=== PATIENT | male | born 1955 | race Caucasian/White ===

== ENCOUNTER 2017-08-29 12:57 | Emergency (ER) | payer OTHER ==
[2017-08-29 16:42] LABS: ADD UMIC YES; UR ASCORBIC ACID NEGATIVE (NEGATIVE); UR BACTERIA FEW /HPF (NONE SEEN); UR BILIRUBIN (Dip) NEGATIVE (NEGATIVE); UR BLOOD (Dip) NEGATIVE (NEGATIVE); UR CLARITY SLIGHTLY CLOUDY (CLEAR); UR COLOR YELLOW (YELLOW); UR GLUCOSE (Dip) NEGATIVE (NEGATIVE); UR KETONES (Dip) NEGATIVE (NEGATIVE); UR LEUKOCYTE ESTERASE (Dip) 3+ Leu/ul (NEGATIVE); UR NITRITE (Dip) NEGATIVE (NEGATIVE); UR RBC 4 /HPF (0-5); UR SPECIFIC GRAVITY (Dip) 1.004 (1.003-1.030); UR TOTAL PROTEIN (Dip) NEGATIVE (NEGATIVE); UR UROBILINOGEN (Dip) NEGATIVE (NEGATIVE); UR WBC 47 /HPF (0-5)
[2017-08-29] MEDS: CEFTRIAXONE 1 GM INJ IM (17:06)
[2017-08-29] MEDS: LIDOCAINE 1% (MDV) 20 ML INJ SC (17:06)
== END 2017-08-29 19:03 | disposition home or self-care (01) ==
LOC: FTE 19:03
DX: N39.0 Urinary tract infection, site not specified (principal); I10 Essential (primary) hypertension
CPT/HCPCS: 81001; 87086; 96372; 99284-25

== ENCOUNTER 2017-11-12 10:10 | Emergency (ER) | payer OTHER ==
[2017-11-12 12:09] LABS: ADD MAN DIFF? NO
[2017-11-12 12:26] LABS: BASOPHIL # 0.1 10^3/ul (0.0-0.1); BASOPHILS % 0.8 % (0.0-2.0); EOSINOPHILS # 0.1 10^3/ul (0.0-0.5); EOSINOPHILS % 0.8 % (0.0-7.0); HEMOGLOBIN 12.9 g/dl (14.0-18.0); LYMPHOCYTES # 1.8 10^3/ul (0.8-2.9); LYMPHOCYTES % 24.7 % (15.0-51.0); MEAN CORPUSCULAR HEMOGLOBIN 32.3 pg (29.0-33.0); MEAN CORPUSCULAR HGB CONC 33.9 g/dl (32.0-37.0); MEAN PLATELET VOLUME 9.4 fl (7.4-10.4); MONOCYTE # 1.5 10^3/ul (0.3-0.9); MONOCYTES % 20.2 % (0.0-11.0); NEUTROPHIL # 3.8 10^3/ul (1.6-7.5); NEUTROPHILS % 52.7 % (39.0-77.0); PLATELET COUNT 157 10^3/UL (140-415); RED CELL DISTRIBUTION WIDTH 13.9 % (11.5-14.5)
[2017-11-12 12:26] LABS: WHITE BLOOD COUNT 7.3 10^3/ul (4.8-10.8)
[2017-11-12 12:30] LABS: ALBUMIN 4.8 g/dl (3.3-4.9); ALBUMIN/GLOBULIN RATIO 1.09; ALKALINE PHOSPHATASE 96 IU/L (42-121); ANION GAP 19 (8-16); ASPARTATE AMINO TRANSFERASE 179 IU/L (15-46); BILIRUBIN,INDIRECT 0.3 mg/dl (0-1.1); BILIRUBIN,TOTAL 0.3 mg/dl (0.2-1.3); BLOOD UREA NITROGEN 16 mg/dl (7-20); CALCIUM 9.4 mg/dl (8.4-10.2); CARBON DIOXIDE 30 mmol/L (21-31); CHLORIDE 96 mmol/L (97-110); GLUCOSE 80 mg/dl (70-220); LIPASE 629 U/L (23-300); POTASSIUM 3.4 mmol/L (3.5-5.1); SODIUM 142 mmol/L (135-144); TOTAL PROTEIN 9.2 g/dl (6.1-8.1)
[2017-11-12 12:33] LABS: ALANINE AMINOTRANSFERASE 231 IU/L (13-69)
[2017-11-12 12:43] LABS: UR CLARITY CLOUDY (CLEAR); UR COLOR YELLOW (YELLOW)
[2017-11-12 12:44] LABS: UR BILIRUBIN (Dip) NEGATIVE (NEGATIVE); UR BLOOD (Dip) 2+ mg/dL (NEGATIVE); UR GLUCOSE (Dip) NEGATIVE (NEGATIVE); UR KETONES (Dip) NEGATIVE (NEGATIVE); UR NITRITE (Dip) POSITIVE (NEGATIVE); UR TOTAL PROTEIN (Dip) 1+ mg/dl (NEGATIVE); URINE SPECIFIC GRAVITY (Dip) 1.006 (1.003-1.030)
[2017-11-12 12:45] LABS: ADD UMIC YES; UR BACTERIA MODERATE /HPF (NONE SEEN); UR LEUKOCYTE ESTERASE (Dip) 3+ Leu/ul (NEGATIVE); UR SQUAMOUS EPITHELIAL CELL FEW /HPF (FEW); UR UROBILINOGEN (Dip) NEGATIVE (NEGATIVE)
[2017-11-12] MEDS: LIDOCAINE 1% (MDV) 10 ML INJ INJ (13:09)
[2017-11-12] MEDS: CEFTRIAXONE 1 GM INJ IM (13:09)
== END 2017-11-12 13:38 | disposition home or self-care (01) ==
LOC: FTE 10:10
DX: N39.0 Urinary tract infection, site not specified (principal); I10 Essential (primary) hypertension; R74.0 Nonspecific elevation of levels of transaminase and lactic acid dehydrogenase [LDH]
CPT/HCPCS: 36415; 74176; 80053; 81001; 83690; 85025; 87086; 96372; 99285-25

== ENCOUNTER 2018-03-17 13:46 | Emergency (ER) | payer OTHER ==
[2018-03-17] MEDS: CEFTRIAXONE 1 GM INJ IM (15:23)
[2018-03-17] MEDS: LIDOCAINE 2% (MDV) 20 ML INJ INJ (15:23)
[2018-03-17 15:47] LABS: ADD UMIC YES; UR ASCORBIC ACID NEGATIVE (NEGATIVE); UR BACTERIA MODERATE /HPF (NONE SEEN); UR BILIRUBIN (Dip) NEGATIVE (NEGATIVE); UR BLOOD (Dip) 2+ mg/dL (NEGATIVE); UR CLARITY SLIGHTLY CLOUDY (CLEAR); UR COLOR YELLOW (YELLOW); UR GLUCOSE (Dip) NEGATIVE (NEGATIVE); UR KETONES (Dip) NEGATIVE (NEGATIVE); UR LEUKOCYTE ESTERASE (Dip) 3+ Leu/ul (NEGATIVE); UR NITRITE (Dip) POSITIVE (NEGATIVE); UR NONSQUAMOUS EPITHELIAL CELL 1 /HPF (NONE SEEN); UR RBC 6 /HPF (0-5); UR SPECIFIC GRAVITY (Dip) 1.014 (1.003-1.030); UR TOTAL PROTEIN (Dip) 1+ mg/dl (NEGATIVE); UR UROBILINOGEN (Dip) NEGATIVE (NEGATIVE); UR WBC > 182 /HPF (0-5)
== END 2018-03-17 16:10 | disposition home or self-care (01) ==
LOC: FTE 13:46
DX: N39.0 Urinary tract infection, site not specified (principal); I10 Essential (primary) hypertension
CPT/HCPCS: 81001; 87086; 96372; 99284-25